=== PATIENT | male | born 1990 | race Caucasian/White ===

== ENCOUNTER → 2025-03-05 | Outpatient (CLI) | payer OTHER ==
[~2025-03-05] MED LIST: GADOTERATE MEGLUMINE 10 MMOL/20 ML VIAL IV ONE
--- NOTE | 2025-03-07 17:42 | HMCIMG ---
EXAM: MR Brain and IAC without and with IV Contrast. CLINICAL HISTORY: Bilateral tinnitus. TECHNIQUE: Multiplanar multi-sequence MRI of the brain and IAC without and with IV Contrast. COMPARISON: None provided. FINDINGS: BRAIN: No abnormal parenchymal signal is present. No acute intracranial abnormality, specifically cortical infarction, hemorrhage, mass, or mass effect. No hydrocephalus. No abnormal extra-axial fluid collection is present. The marrow signal within the skull base and calvarium is intact. The paranasal sinuses are clear. IAC: The cerebellopontine angles are CSF-filled. The internal auditory canal bilaterally is normal in signal. The seventh and eighth nerve bundles are intact. Vascular loops are seen in close contact with the bilateral seventh and eighth intracanalicular segments. Inner ear structures are normal. Mastoid air cells demonstrate no abnormal signal. Enhancing subcutaneous lesions in the suboccipital region on both sides, the largest on the right side measuring approximately 8.1 x 8.3 mm, are likely reactive nodes. IMPRESSION: 1. No acute intracranial abnormality or mass. 2. Vascular loops are seen in close contact with the bilateral seventh and eighth intracanalicular segments. /Filer
== END | disposition home or self-care (01) ==
LOC: RAH 15:07
PROVIDERS: ATTEND Family Medicine
DX: G43.909 Migraine, unspecified, not intractable, without status migrainosus (principal); H93.13 Tinnitus, bilateral; L98.8 Other specified disorders of the skin and subcutaneous tissue
CPT/HCPCS: 70553; A9575